=== PATIENT | female | born 1995 | race Two or more races ===

== ENCOUNTER 2017-05-08 10:44 | Emergency (ER) | payer BC ==
[~2017-05-08] VITALS: Ht 162.6 cm; Wt 75.7 kg
[~2017-05-08 10:44] MED LIST: METH4TAB2 PO
[2017-05-08 11:29] LABS: NEGATIVE OBC STREP NEG; POSITIVE OBC STREP POS
--- NOTE | 2017-05-08 11:29 | PHYS DOC ---
Past Medical History Past Medical History: Anemia, Other Additional Past Medical Histor: "KIDNEY INFECTIONS," chlamydia Past Surgical History: No Surgical History Alcohol Use: None Drug Use: None Adult General Chief Complaint Chief Complaint: ABDOMINAL PAIN IN HPI HPI Patient is a 21 year old female presents to the emergency department stating that she's been having nasal congestion with a sore throat. She also states that she's been having some lower abdominal pain suprapubic in towards the left. Patient states that she is last menstrual period was 03/24/17. Patient states this first . Patient also continues to state that she has had some yellow vaginal discharge denies any bleeding. Patient states she's been having fever and chills however has not taken anything. Patient states she has not seen an SKIN INSTALLER as she does have an appointment coming up within the next week. Review of Systems Review of Systems Constitutional: Subjective fever and chills Eyes: Denies change in visual acuity, redness, or eye pain [] HENT: Nasal congestion and sore throat Respiratory: Cough denies shortness of air Cardiovascular: No additional information not addressed in HPI [] GI: Suprapubic abdominal pain, left sided lower pelvic pain denies nausea, vomiting, bloody stools or diarrhea [] : Denies dysuria or hematuria [] Musculoskeletal: Denies back pain or joint pain [] Integument: Denies rash or skin lesions [] Neurologic: Denies headache, focal weakness or sensory changes [] Endocrine: Denies polyuria or polydipsia [] Allergies Allergies Allergies Coded Allergies Type Severity Reaction Last Updated Verified ibuprofen Allergy Severe 01/10/15 Yes NSAIDS (Non-Steroidal Anti-Inflamma Allergy Intermediate 01/10/15 Yes human papillomavirus vaccine, quadr Allergy Intermediate 01/09/15 No naproxen Allergy Intermediate 01/09/15 No Physical Exam Physical Exam Constitutional: Well developed, well nourished, no acute distress, non-toxic appearance. [] HENT: Normocephalic, atraumatic, bilateral external ears normal, oropharynx moist, no oral exudates, nose normal. Bilateral tympanic membranes appear to be normal. Throat with postnasal drip. No exudate no erythematous noted. Patient was no anterior cervical adenopathy noted. No frontal or maxillary sinus tenderness noted. Eyes: PERRLA, EOMI, conjunctiva normal, no discharge. [] Neck: Normal range of motion, no tenderness, supple, no stridor. [] Cardiovascular:Heart rate regular rhythm, no murmur [] Lungs & Thorax: Bilateral breath sounds clear to auscultation [] Abdomen: Bowel sounds hypoactive, soft, no tenderness, no masses, no pulsatile masses. [] Skin: Warm, dry, no erythema, no rash. [] Back: No tenderness Extremities: No tenderness, no cyanosis, no clubbing, ROM intact, no edema. [] Neurologic: Alert and oriented X 3, normal motor function, normal sensory function, no focal deficits noted. [] Psychologic: Affect normal, judgement normal, mood normal. [] Current Patient Data Vital Signs Vital Signs Date Time Temp Pulse Resp B/P (MAP) Pulse Ox O2 Delivery O2 Flow Rate FiO2 05/08/17 12:25 82 101/56 (71) 98 Room Air 05/08/17 11:55 20 05/08/17 10:50 98.6 98.6 Lab Values Laboratory Tests Test 05/08/17 10:40 05/08/17 11:10 05/08/17 11:25 05/08/17 11:40 POC Urine HCG, Qualitative Hcg positive (Negative) Group A Streptococcus Rapid Negative (NEGATIVE) Urine Collection Type Unknown Urine Color Yellow Urine Clarity Cloudy Urine pH 6.0 Urine Specific [place] 1.015 Urine Protein Negative mg/dL (NEG-TRACE) Urine Glucose (UA) Negative mg/dL (NEG) Urine Ketones (Stick) Negative mg/dL (NEG) Urine Blood Trace (NEG) Urine Nitrite Negative (NEG) Urine Bilirubin Negative (NEG) Urine Urobilinogen Dipstick 0.2 mg/dL (0.2 mg/dL) Urine Leukocyte Esterase Large (NEG) Urine RBC Occ /HPF (0-2) Urine WBC 11-20 /HPF (0-4) Urine Squamous Epithelial Cells Few /LPF Urine Bacteria Few /HPF (0-FEW) Urine Mucus Slight /LPF Maternal Serum HCG Beta Subunit 17803 mIU/mL (0-5) H Microbiology 05/08/17 Wet Prep - Final, Complete EKG EKG [] Radiology/Procedures Radiology/Procedures [][facility] [address] [place] [address] IMAGING REPORT Signed PATIENT: SAUNDRA NUNEZ ACCOUNT: [id number] : 1995 LOCATION: ER AGE: 21 SEX: F EXAM STATUS: REG ER ORD. PHYSICIAN: FATOUMATA BARRY APRN REASON: suprapubic to left abdominal pain, PROCEDURE: OB <14 WKS W/TV OB ultrasound less than 14 weeks to include transabdominal and transvaginal imaging 05/08/2017 Clinical history: First trimester with pelvic pain. Technique: Using the distended urinary bladder as a sonographic window, a real-time ultrasound examination of the pelvis was performed. Additionally in an attempt to better evaluate the uterus and adnexa, a transvaginal ultrasound study was performed. Multiple images were obtained. Findings: A gestational sac is seen within the endometrial canal near the fundus of the uterus. Within this gestational sac a embryonic pole and associated yolk sac are seen. The CRL of the embryonic pole measures 3.8 mm. This corresponds to an estimated gestational age by ultrasound of 6 weeks 0 days plus or minus a standard deviation of 4 days. Embryonic cardiac activity is seen with a heart rate of 168 bpm. THe uterus is otherwise within normal limits. The right ovary is normal in size. It measures 5.2 x 3.5 x 2.5 cm in size. A 1.2 cm anechoic structure is seen within the right ovary which may represent a corpus luteum. The left ovary is normal in size and echogenicity. It measures 3.8 x 1.4 x 1.4 cm in size. No adnexal mass is seen. No free fluid is noted. Impression: Single living IUP with an estimated gestational age by ultrasound of 6 weeks 0 days plus or minus a standard deviation of 4 days. The estimated date of delivery by ultrasound is 01/01/2018. DICTATED and SIGNED BY: MICHELET MCCARTHY MD DATE: 05/08/17 1223 CC: FATOUMATA BARRY APRN; NO PCP ~ Course & Med Decision Making Course & Med Decision Making Pertinent Labs and Imaging studies reviewed. (See chart for details) Patient's urine is positive for urinary tract infection. Wet prep was positive for bacterial vaginosis. Ultrasound identified a single living urine of 6 weeks 0 days. Patient will be discharged home with Flagyl, and Keflex. Recommended patient follow-up primary care physician in the next 7-10 days. Since symptoms to return back to emergency department been provided. Recommended plenty of fluids such as water and cranberry juice. Avoid cranberry juice cocktail, carbonate beverages, citrus fruits and alcohol disease are considered irritants to the bladder. Patient will be discharged home with signs and symptoms to return back to the emergency department. All questions and concerns was answered at patient's bedside. [] Dragon Disclaimer Dragon Disclaimer This electronic medical record was generated, in whole or in part, using a voice recognition dictation system. Departure Departure Impression: Primary Impression: Urinary tract infection Additional Impressions: Upper respiratory infection Bacterial vaginosis Disposition: HOME, SELF-CARE Condition: STABLE Referrals: NO PCP (PCP) Patient Instructions: ABCs of , Bacterial Vaginosis, [id number], - Urinary Tract Infection Additional Instructions: Your ultrasound identified a 6-week-old baby in the uterus. You also have a urinary tract infection, and bacterial vaginosis. You'll be placed on antibiotics for both. Take the antibiotics as directed. You may take Tylenol [id number] for headaches fevers chills or pain. You may also take Benadryl [id number] to help with nasal congestion. Drink plenty of fluids. Drink plenty of water and cranberry juice. Avoid cranberry juice cocktail, carbonate beverages, caffeine, alcohol, citrus fruits disease are considered irritants to the bladder. Follow-up to primary care physician or SKIN INSTALLER in the next week. Return back to emergency prior signs symptoms of become worse. Scripts Metronidazole (FLAGYL) 500 Mg Tablet 1 TAB PO BID, #14 TAB Prov: FATOUMATA BARRY GENERAL EDUCATION PROFESSOR 05/08/17 Cephalexin (CEPHALEXIN) 500 Mg Tablet 1 TAB PO BID, #20 TAB Prov: FATOUMATA BARRY APRN 05/08/17 Problem Qualifiers Primary Impression: Urinary tract infection Urinary tract infection type: site unspecified Hematuria presence: without hematuria Qualified Codes: N39.0 - Urinary tract infection, site not specified Additional Impressions: Upper respiratory infection URI type: unspecified URI Qualified Codes: J06.9 - Acute upper respiratory infection, unspecified FATOUMATA BARRY APRN May 08, 2017 11:29
[2017-05-08 11:42] LABS: BILIRUBIN,URINE NEGATIVE (NEG); GLUCOSE,URINE NEGATIVE (NEG); NITRITE,URINE NEGATIVE (NEG); PROTEIN,URINE NEGATIVE (NEG-TRACE); UROBILINOGEN,URINE 0.2 mg/dL (0.2 mg/dL)
[2017-05-08 12:05] LABS: BACTERIA,URINE FEW /HPF (0-FEW); RBC,URINE OCC /HPF (0-2); SQUAMOUS EPITHELIAL CELL,UR FEW /LPF
[2017-05-08 12:25] VITALS: BP 101/56
--- NOTE | 2017-05-08 12:28 | RAD ---
OB ultrasound less than 14 weeks to include transabdominal and transvaginal imaging 05/08/2017 Clinical history: First trimester with pelvic pain. Technique: Using the distended urinary bladder as a sonographic window, a real-time ultrasound examination of the pelvis was performed. Additionally in an attempt to better evaluate the uterus and adnexa, a transvaginal ultrasound study was performed. Multiple images were obtained. Findings: A gestational sac is seen within the endometrial canal near the fundus of the uterus. Within this gestational sac a embryonic pole and associated yolk sac are seen. The CRL of the embryonic pole measures 3.8 mm. This corresponds to an estimated gestational age by ultrasound of 6 weeks 0 days plus or minus a standard deviation of 4 days. Embryonic cardiac activity is seen with a heart rate of 168 bpm. THe uterus is otherwise within normal limits. The right ovary is normal in size. It measures 5.2 x 3.5 x 2.5 cm in size. A 1.2 cm anechoic structure is seen within the right ovary which may represent a corpus luteum. The left ovary is normal in size and echogenicity. It measures 3.8 x 1.4 x 1.4 cm in size. No adnexal mass is seen. No free fluid is noted. Impression: Single living IUP with an estimated gestational age by ultrasound of 6 weeks 0 days plus or minus a standard deviation of 4 days. The estimated date of delivery by ultrasound is 01/01/2018.
[2017-05-08] MEDS ORDERED: METR500T PO (13:15)
[2017-05-08] MEDS ORDERED: CEPH500T PO (13:15)
== END 2017-05-08 13:26 | disposition home or self-care (01) ==
LOC: ER 10:44
DX: O23.41 Unspecified infection of urinary tract in pregnancy, first trimester (principal); O99.511 Diseases of the respiratory system complicating pregnancy, first trimester; J06.9 Acute upper respiratory infection, unspecified; O23.591 Infection of other part of genital tract in pregnancy, first trimester; N76.0 Acute vaginitis; B96.89 Other specified bacterial agents as the cause of diseases classified elsewhere; Z3A.01 Less than 8 weeks gestation of pregnancy; Z88.6 Allergy status to analgesic agent; Z88.8 Allergy status to other drugs, medicaments and biological substances; Z88.7 Allergy status to serum and vaccine
CPT/HCPCS: 36415; 76801; 76817; 81001; 81025; 84702; 86900; 86901; 87070; 87086; 87491; 87591; 87880; 99285; Q0111

== ENCOUNTER 2017-06-17 10:40 | Emergency (ER) | payer BC ==
[~2017-06-17] VITALS: Ht 165.1 cm; Wt 75.7 kg
[~2017-06-17 10:40] MED LIST changes: +CEPH500T PO; +METR500T PO
--- NOTE | 2017-06-17 10:43 | PHYS DOC ---
Past Medical History Past Medical History: Anemia, Other Additional Past Medical Histor: "KIDNEY INFECTIONS," chlamydia Past Surgical History: No Surgical History Alcohol Use: None Drug Use: None Adult General Chief Complaint Chief Complaint: ABDOMINAL PAIN IN HPI HPI Patient is a 21 year old female presenting to the emergency department for evaluation of multiple complaints including left rib pain left lower quadrant discomfort and vaginal discharge. Patient says that the pain started yesterday evening when she heard about her little brother having a seizure. She became very anxious and feels tightness in her left chest that is sometimes sharp and comes and goes. She says deep breaths make it better and that it does not get worse with exertion or movements of her torso. She started crying when she was talking about the pain and her little brother. She says she gets very anxious that she is going to lose her baby. She is G1, appx 12 weeks , going to follow at [facility]. She denies any nausea vomiting vaginal bleeding dysuria hematuria fevers chills diarrhea constipation. Review of Systems Review of Systems Constitutional: Denies fever or chills [] Respiratory: Denies cough or shortness of breath [] Cardiovascular: No additional information not addressed in HPI [] GI: + abdominal pain, nausea. No vomiting, bloody stools or diarrhea [] : Denies dysuria or hematuria [] Musculoskeletal: Denies back pain or joint pain [] Neurologic: Denies headache, focal weakness or sensory changes [] Current Medications Current Medications Current Medications Medications (Trade) Dose Ordered Sig/Ashlee Start Time Stop Time Status Last Admin Dose Admin Acetaminophen (Tylenol) 650 mg 1X ONCE 06/17/17 11:15 06/17/17 11:16 DC 06/17/17 11:45 650 MG Hydroxyzine Pamoate (Vistaril) 25 mg 1X STAT 06/17/17 11:05 06/17/17 11:08 DC 06/17/17 11:45 25 MG Allergies Allergies Allergies Coded Allergies Type Severity Reaction Last Updated Verified ibuprofen Allergy Severe 01/10/15 Yes NSAIDS (Non-Steroidal Anti-Inflamma Allergy Intermediate 01/10/15 Yes human papillomavirus vaccine, quadr Allergy Intermediate 01/09/15 No naproxen Allergy Intermediate 01/09/15 No Physical Exam Physical Exam Constitutional: Well developed, well nourished, no acute distress, non-toxic appearance. [] Cardiovascular:Heart rate regular rhythm, no murmur [] Lungs & Thorax: Bilateral breath sounds clear to auscultation. Left lower rib ttp. Abdomen: Bowel sounds normal, soft, mild LLQ tenderness, no rebound or guarding , no masses, no pulsatile masses. 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 No CMT or adnexal tenderness. Skin: Warm, dry, no erythema, no rash. [] Back: No tenderness, no CVA tenderness. [] Extremities: No tenderness, no cyanosis, no clubbing, ROM intact, no edema. [] Neurologic: Alert and oriented X 3, normal motor function, normal sensory function, no focal deficits noted. [] Current Patient Data Vital Signs Vital Signs Date Time Temp Pulse Resp B/P (MAP) Pulse Ox O2 Delivery O2 Flow Rate FiO2 06/17/17 11:43 71 20 101/53 (69) 97 Room Air 06/17/17 10:46 97.9 97.9 Lab Values Laboratory Tests Test 06/17/17 10:50 Urine Collection Type Unknown Urine Color Yellow Urine Clarity Cloudy Urine pH 7.0 Urine Specific [place] 1.020 Urine Protein Negative mg/dL (NEG-TRACE) Urine Glucose (UA) Negative mg/dL (NEG) Urine Ketones (Stick) Trace mg/dL (NEG) Urine Blood Small (NEG) Urine Nitrite Negative (NEG) Urine Bilirubin Negative (NEG) Urine Urobilinogen Dipstick 0.2 mg/dL (0.2 mg/dL) Urine Leukocyte Esterase Large (NEG) Urine RBC 6-10 /HPF (0-2) Urine WBC >40 /HPF (0-4) Urine Squamous Epithelial Cells Many /LPF Urine Bacteria Few /HPF (0-FEW) Microbiology 06/17/17 Wet Prep - Final, Complete EKG EKG [] Radiology/Procedures Radiology/Procedures BSUS SHOWED IUP WITH FHT AT 146 Course & Med Decision Making Course & Med Decision Making Patient with UA that is contaminated but given WBCs and bacteria, will treat. Also will treat BV with flagyl. Patient has repeat normal abdominal exam. Patient aware and agreeable with plan for DC and verbalized understanding of need for short term OB f/u and strict ED return precautions discussed including worsening pain, fevers, vomiting, or other general concerns. Dragon Disclaimer Dragon Disclaimer This electronic medical record was generated, in whole or in part, using a voice recognition dictation system. Departure Departure Impression: Primary Impression: Urinary tract infection Additional Impression: Bacterial vaginosis Disposition: 01 HOME, SELF-CARE Condition: STABLE Referrals: RIVER CHENEY Jr, MD Patient Instructions: Bacterial Vaginosis Additional Instructions: TAKE TYLENOL FOR PAIN AND DRINK PLENTY OF FLUIDS AND FOLLOW WITH AN OB WITHIN 2- 3 DAYS. COME BACK TO THE ED SOONER WITH ANY NEW OR WORSENING SYMPTOMS. THANK YOU! Scripts Nitrofurantoin Monohyd/M-Cryst (MACROBID 100 MG CAPSULE) 100 Mg Capsule 1 CAP PO BID, #14 CAP Prov: YG POSADA DO 06/17/17 Metronidazole (FLAGYL) 500 Mg Tablet 1 TAB PO BID, #14 TAB Prov: YG POSADA DO 06/17/17 Problem Qualifiers Primary Impression: Urinary tract infection Urinary tract infection type: acute cystitis Hematuria presence: with hematuria Qualified Codes: N30.01 - Acute cystitis with hematuria YG POSADA DO Jun 17, 2017 10:43
[2017-06-17] MEDS ORDERED: hydrOXYzine PAMOATE 25 MG CAPSULE PO STA (11:05)
[2017-06-17 11:10] LABS: BILIRUBIN,URINE NEGATIVE (NEG); GLUCOSE,URINE NEGATIVE (NEG); NITRITE,URINE NEGATIVE (NEG); PROTEIN,URINE NEGATIVE (NEG-TRACE); UROBILINOGEN,URINE 0.2 mg/dL (0.2 mg/dL)
[2017-06-17] MEDS ORDERED: ACETAMINOPHEN 325 MG TABLET. PO ONE (11:15)
[2017-06-17 11:20] LABS: BACTERIA,URINE FEW /HPF (0-FEW); WBC,URINE >40 /HPF (0-4)
[2017-06-17 11:21] LABS: SQUAMOUS EPITHELIAL CELL,UR MANY /LPF
[2017-06-17] MEDS ORDERED: METR500T PO (11:57)
[2017-06-17] MEDS ORDERED: NITR100C62 PO (11:57)
[2017-06-17 12:34] VITALS: BP 91/54
== END 2017-06-17 12:35 | disposition home or self-care (01) ==
LOC: ER 10:40
DX: O23.11 Infections of bladder in pregnancy, first trimester (principal); N30.01 Acute cystitis with hematuria; O23.591 Infection of other part of genital tract in pregnancy, first trimester; N76.0 Acute vaginitis; B96.89 Other specified bacterial agents as the cause of diseases classified elsewhere; Z3A.12 12 weeks gestation of pregnancy; Z88.6 Allergy status to analgesic agent; Z88.7 Allergy status to serum and vaccine; Z88.8 Allergy status to other drugs, medicaments and biological substances
CPT/HCPCS: 81001; 87086; 87491; 87591; 99285; Q0111; Q0177